=== PATIENT | female | born 1995 | race Two or more races ===

== ENCOUNTER 2020-10-13 09:03 | Emergency (ER) | payer MEDICAID ==
[~2020-10-13] VITALS: Ht 160 cm; Wt 56.7 kg
[2020-10-13] MEDS ORDERED: ONDANSETRON HCL/PF 4 MG/2 ML VIAL ONE (09:19)
[2020-10-13] MEDS ORDERED: MORPHINE SULFATE INJ 4 MG/ML DISP.SYRIN ONE (09:19)
[2020-10-13] MEDS ORDERED: FAMOTIDINE/PF INJ 20 MG/2 ML VIAL IV ONE (09:19)
[2020-10-13 09:34] LABS: BASOPHILS % (AUTO) 0.1 % (0.0-2.0); HEMATOCRIT 37 % (33-45); HEMOGLOBIN 12.1 g/dL (11.5-14.8); LYMPHOCYTES # (AUTO) 0.8 /CMM (0.8-4.8); LYMPHOCYTES % (AUTO) 6.4 % (20.0-44.0); MEAN CORPUSCULAR HGB CONC 33 g/dl (31.0-36.0); MEAN CORPUSCULAR VOLUME 90 fL (82-100); MONOCYTES # (AUTO) 0.2 /CMM (0.1-1.30); MONOCYTES % (AUTO) 1.6 % (2.0-12.0); NEUTROPHILS # (AUTO) 11.1 /CMM (1.8-8.9); NEUTROPHILS % (AUTO) 91.9 % (43.0-81.0); PLATELET COUNT (AUTO) 278 /CMM (150-450); RED BLOOD CELL COUNT(AUTO) 4.04 MIL/uL (4.0-5.2); WHITE BLOOD COUNT (AUTO) 12.1 K/uL (4.3-11.0)
--- NOTE | 2020-10-13 09:37 | NUR ---
patient bibrafrom home, c/o abd pain, nausea vomiting, and diarrhea since 5am. Breathing evenly and unlabored. connected to the monitor and pulse ox, kept comfortable, will continue to monitor accordingly.
[2020-10-13] MEDS: IV NS 0.9% 500 ML BAG IV ONE (09:39)
[2020-10-13] MEDS: FAMOTIDINE/PF INJ 20 MG/2 ML VIAL IV ONE (09:42)
[2020-10-13] MEDS: ONDANSETRON HCL/PF 4 MG/2 ML VIAL IVP ONE (09:42)
[2020-10-13] MEDS: MORPHINE SULFATE INJ 2 MG/ML DISP.SYRIN IV ONE (09:42)
--- NOTE | 2020-10-13 09:56 | NUR ---
PENDING TEST FOR CT ABD/PEL
[2020-10-13 10:05] LABS: ALBUMIN 4.4 g/dL (3.4-5.0); BILIRUBIN,DIRECT 0.1 mg/dL (0.0-0.2); BILIRUBIN,TOTAL 0.3 mg/dL (0.2-1.0); CALCIUM, SERUM 9.7 mg/dL (8.5-10.1); POTASSIUM 3.7 mmol/L (3.5-5.1); TOTAL PROTEIN, SERUM 9.7 g/dL (6.4-8.2)
[2020-10-13 10:36] LABS: BILIRUBIN,URINE SMALL (NEGATIVE); COLOR,URINE YELLOW (YELLOW); LEUKOCYTE ESTERASE ,URINE NEGATIVE (NEGATIVE); NITRITE, URINE POSITIVE (NEGATIVE); PROTEIN,URINE 30 mg/dl (NEGATIVE); UGLUCOSE NEGATIVE (NEGATIVE); UROBILINOGEN,URINE 0.2 EU/dL (0.2)
[2020-10-13 11:17] LABS: BACTERIA,URINE Many /HPF (None Seen); RBC,URINE 0-2 /HPF (0-2); SQUAMOUS EPITHELIAL CELL,UR Few /HPF (None Seen)
[2020-10-13 11:18] LABS: MUCUS,URINE Few /LPF (None Seen)
[2020-10-13 11:49] VITALS: BP 100/60
--- NOTE | 2020-10-13 11:50 | NUR ---
Patient discharged to home in stable condition. Written and verbal after care instructions given. Patient verbalizes understanding of instruction.
--- NOTE | 2020-10-15 12:15 | NUR ---
late entry: NS 500 cc started at 09:39 and eneded at 10:09 on 10/13/20 .
== END 2020-10-13 11:50 | disposition home or self-care (01) ==
LOC: ER 09:08
DX: R10.9 Unspecified abdominal pain (principal); K92.0 Hematemesis; Z98.890 Other specified postprocedural states
CPT/HCPCS: 36415; 74176; 80048; 80076; 81001; 83690; 84703; 85025; 85730; 87086; 96374; 96375; 99284; J2270; J2405; J3490; J7040